=== PATIENT | male | born 1970 | race Caucasian/White ===

== ENCOUNTER → 2017-03-17 | Day surgery (SDC) | payer OTHER ==
--- NOTE | 2017-03-16 14:35 | PCM.PREANE ---
Preanesthetic Assessment - Anesthesia/Transfusion/Family Hx Anesthesia History: Prior Anesthesia Without Reaction Family History of Anesthesia Reaction: No Transfusion History: Prior Transfusion Without Reaction Intubation History: Unknown - Review of Systems Pulmonary: No Symptoms (quit smoking 1999) Cardiovascular: No Symptoms (History of PVC's and SVT) Neurological: No Symptoms (History of menigitis as a child./History of lower extremity edema noted.) Other: Reports: Depression - Physical Assessment NPO Status Date: 03/16/17 Height: 1.73 m ASA Class: 2 Mental Status: Alert & Oriented x3 - Lab Values: Laboratory Last Values MRSA (PCR) Negative 03/11/17 09:41 All lab values reviewed and noted and within acceptable ranges to proceed with scheduled procedure. - Imaging/EKG Impressions: EKG: SB rate= 47, minimal left ventricular hypertrophy Holter Monitor: - Echo: - Stress Test: - - Anesthesia Plan Pre-Op Medication Ordered: None - Acknowledgements Anesthesia Type Planned: General Anesthesia (and left interscalene block under US guidance for post operative pain control requested by Dr. Burleson.) Pt an Appropriate Candidate for the Planned Anesthesia: Yes Alternatives and Risks of Anesthesia Discussed w Pt/Guardian: Yes Pt/Guardian Understands and Agrees with Anesthesia Plan: Yes PreAnesthesia Questionnaire - CURRENT (IN HOUSE) MEDS Current Meds: Current Medications Albuterol (Proventil Neb Soln) 2.5 mg NEB ONETIME PRN PRN Reason: improve respiratory toilet Lactated Ringer's (Ringers, Lactated) 1,000 mls @ 125 mls/hr IV ASDIRECTED EDDI Stop: 03/17/17 23:00 Lidocaine/Sodium Bicarbonate (Buffered Lidocaine 1% In Ns 8.4%) 0.25 ml IDERM ONETIME PRN PRN Reason: Prior to IV Start Stop: 03/17/17 18:00 Sodium Chloride (Saline Flush) 10 ml FLUSH ASDIRECTED PRN PRN Reason: Keep Vein Open Stop: 03/17/17 18:00
--- NOTE | 2017-03-16 14:47 | PCM.PREANE ---
Preanesthetic Assessment - Anesthesia/Transfusion/Family Hx Anesthesia History: Prior Anesthesia Without Reaction Family History of Anesthesia Reaction: No Transfusion History: No Prior Transfusion(s) Intubation History: Unknown - Review of Systems General: No Symptoms Pulmonary: No Symptoms (chew tobacco 2100 03/16/17) Cardiovascular: No Symptoms Gastrointestinal: No Symptoms Neurological: No Symptoms (history of lower back surgury) Other: Reports: None - Physical Assessment NPO Status Date: 03/16/17 NPO Status Time: 19:00 Pulse: 63 O2 Sat by Pulse Oximetry: 94 Respiratory Rate: 20 Blood Pressure: 131/87 Temperature: 36.4 C Height: 1.8 m Weight: 149 kg ASA Class: 2 Mental Status: Alert & Oriented x3 Airway Class: Mallampati = 2 Dentition: Reports: Normal Dentition, Caries Thyro-Mental Finger Breadths: 3 Mouth Opening Finger Breadths: 3 ROM/Head Extension: Full Lungs: Clear to Auscultation, Normal Respiratory Effort Cardiovascular: Regular Rate, Regular Rhythm, No Murmurs - Lab Values: Laboratory Last Values MRSA (PCR) Negative 03/11/17 09:41 All lab values reviewed and noted and within acceptable ranges to proceed with scheduled procedure. - Imaging/EKG Impressions: EKG: SR rate=64 CXR: negative - Allergies Allergies/Adverse Reactions: Allergies Allergy/AdvReac Type Severity Reaction Status Date / Time No Known Allergies Allergy Verified 03/16/17 15:30 - Anesthesia Plan Pre-Op Medication Ordered: None - Acknowledgements Anesthesia Type Planned: General Anesthesia (and right interscalene block under us guidance for post operative pain control requested by Dr. Burleson.) Pt an Appropriate Candidate for the Planned Anesthesia: Yes Alternatives and Risks of Anesthesia Discussed w Pt/Guardian: Yes Pt/Guardian Understands and Agrees with Anesthesia Plan: Yes PreAnesthesia Questionnaire - HOME MEDS Home Medications: Home Meds Cyclobenzaprine [Flexeril] 10 mg PO Q8H PRN #40 tab 03/17/17 [Rx] Hydrocodone/Acetaminophen [[place] 5-325 Tablet] 1 - 2 each PO Q6H PRN #40 tablet 03/17/17 [Rx] - CURRENT (IN HOUSE) MEDS Current Meds: Current Medications Albuterol (Proventil Neb Soln) 2.5 mg NEB ONETIME PRN PRN Reason: improve respiratory toilet Lactated Ringer's (Ringers, Lactated) 1,000 mls @ 125 mls/hr IV ASDIRECTED EDDI Stop: 03/17/17 23:00 Lidocaine/Sodium Bicarbonate (Buffered Lidocaine 1% In Ns 8.4%) 0.25 ml IDERM ONETIME PRN PRN Reason: Prior to IV Start Stop: 03/17/17 18:00 Sodium Chloride (Saline Flush) 10 ml FLUSH ASDIRECTED PRN PRN Reason: Keep Vein Open Stop: 03/17/17 18:00
[~2017-03-17] MED LIST: Albuterol 0.083% 2.5 MG/3 ML Neb Soln NEB PRN; Albuterol 6.7 GM Inhaler INH ONE; Dexamethasone 4 MG/ML 5 ML MDV ONE; EPINEPHrine 1 MG/ML SDV ONE; HYDROmorphone 0.5 MG/0.5 ML Syringe IVPUSH PRN; HYDROmorphone 1 MG/ML Syringe ONE; Ketorolac 30 MG/ML SDV ONE; Labetalol 100 MG/20 ML MDV ONE; Lactated Ringers 1,000 ML IV SCH; Lactated Ringers 1,000 ML ONE; Lidocaine 1% 6 ML ONE; Lidocaine 1%/Sod Bicarbonate in NS 8.4% 1 ML Syringe IDERM PRN; Midazolam 1 MG/ML 2 ML SDV ONE; Ondansetron 4 MG/2 ML SDV IVPUSH PRN; Ondansetron 4 MG/2 ML SDV ONE; Phenylephrine 1 MG in Sodium Chloride 0.9% 10 ML IV SCH; Propofol 200 MG/20 ML SDV ONE; Rocuronium 50 MG/5 ML Vial ONE; Ropivacaine 0.5% 5 MG/ML 30 ML SDV ONE; Sodium Chloride 0.9% 10 ML Syringe FLUSH PRN; ceFAZolin 1 GM Vial ONE; diphenhydrAMINE 50 MG/ML SDV IVPUSH PRN; ePHEDrine 50 MG/ML SDV IVPUSH PRN; fentaNYL 100 MCG/2 ML SDV IVPUSH PRN; fentaNYL 100 MCG/2 ML SDV ONE; fentaNYL 250 MCG/5 ML SDV ONE
[2017-03-17] MEDS: EPINEPHrine 1 MG/ML 30 ML MDV ONE ×2 (10:30→10:58)
[2017-03-17] MEDS: Bupivacaine 0.25% 30 ML SDV ONE ×2 (10:58→11:40)
--- NOTE | 2017-03-17 12:15 | PCM.POSTAN ---
POST ANESTHESIA ASSESSMENT - MENTAL STATUS Mental Status: Alert - VITAL SIGNS Pulse Rate: 80 SaO2: 92 Resp Rate: 21 Blood Pressure: 172/95 Temperature: 36.4 C - RESPIRATORY Respiratory Status: Respiratory Rate WNL, Airway Patent, O2 Saturation Stable, Supplemental Oxygen - CARDIOVASCULAR CV Status: Pulse Rate WNL, Blood Pressure Stable - GASTROINTESTINAL GI Status: No Symptoms - POST OP HYDRATION Hydration Status: Adequate & Stable
--- NOTE | 2017-03-17 12:32 | PCM.OPNOTE ---
- General Post-Op/Procedure Note Date of Surgery/Procedure: 03/17/17 Operative Procedure(s): right shoulder video arthroscopy with large rotator cuff repair and extensive debridement Pre Op Diagnosis: right shoulder rotator cuff tear Post-Op Diagnosis: Same Anesthesia Technique: General ET Tube, Regional Block (interscalene) Primary Surgeon: Ever Burleson Anesthesia Provider: Shawnee Franco Candy Dipper Hand: Ciara Zhang EBL in mLs: 5 Complications: None Condition: Good
--- NOTE | 2017-03-17 15:07 | PCM48HPAN ---
Post Anesthesia Note - EVALUATION WITHIN 48HRS OF ANESTHETIC Vital Signs in Normal Range: Yes Patient Participated in Evaluation: Yes Respiratory Function Stable: Yes Airway Patent: Yes Cardiovascular Function Stable: Yes Hydration Status Stable: Yes Pain Control Satisfactory: Yes Nausea and Vomiting Control Satisfactory: Yes Mental Status Recovered: Yes
--- NOTE | 2017-03-17 15:41 | PCM.SN ---
- Free Text/Narrative Note: Anesthesia Note: (Right Interscalene block note) Date: 03/17/2017 Time Out: 906 Start: 911 Stop: 925 Surgical Procedure: Right Shoulder Video Arthroscopy with Rotator Cuff Repair, and Subacromial Decompression. Diagnosis Right Shoulder Rotator Cuff Tear Current Procedure: Right interscalene block under US guidance for postoperative pain control requested by Dr. Burleson. Patient chart reviewed, risk/benefits discussed with patient, consent obtained. Patient positioned supine, monitors/alarms on, oxygen placed via nasal cannula at 2 LPM. IV sedation administered: Versed 2mg IV @ 0906, Fentanyl 50mcg IV @ 0906 Right shoulder prepped with two chloropreps. Sterile drapes placed with aseptic technique noted. Under US guidance, right subclavian artery visualized along with the right brachial plexus. Plexus followed up to C6 cricoid level, and area localized with 2mls of 1% lidocaine. 22gauge 2 inch stimiplex needle advanced under US with 0.6mV with stimulation of biceps noted. Good stimulation noted with decreased voltage and absent at 0.2mVs. 1ml of Normal Saline injected with loss of stimulation noted to confirm needle not placed intraneurally. Incremental dosing of 5mls with negative aspiration noted prior to each injection of 0.5% ropivacaine with 1:200,000 epinephrine. Total volume=25mls. Please refer to nurses noted for vital signs. Shawnee Franco CRNA
--- NOTE | 2017-03-23 12:53 | PCM.OPNOTE ---
- General Post-Op/Procedure Note Date of Surgery/Procedure: 03/17/17 Operative Procedure(s): right shoulder video arthroscopy with large rotator cuff repair and extensive debridement Pre Op Diagnosis: right shoulder rotator cuff tear Post-Op Diagnosis: Same Anesthesia Technique: General ET Tube, Regional Block Primary Surgeon: Ever Burleson Anesthesia Provider: Shawnee Franco Assistant Art Director: Ciara Zhang EBRadha in mLs: 5 Complications: None Condition: Good
--- NOTE | 2017-03-23 13:25 | OR ---
DATE OF OPERATION: 03/17/2017 SURGEON: Ever Burleson MD OPERATION PERFORMED: Right shoulder video arthroscopy with large rotator cuff repair and extensive debridement. PREOPERATIVE DIAGNOSIS: Right shoulder rotator cuff tear. POSTOPERATIVE DIAGNOSIS: Right shoulder rotator cuff tear. ANESTHESIA: General endotracheal intubation with regional interscalene block. SENIOR GROUP MANAGER: Ciara Zhang PA-C. ANESTHESIA PROVIDER: Shawnee Franco CRNA. ESTIMATED BLOOD LOSS: Less than 5 mL. COMPLICATIONS: None. CONDITION: Stable. DESCRIPTION OF PROCEDURE: The patient was identified in the preop holding area. Proper site was marked and identified by the surgeon. The patient was taken back to the operating theater where after adequate anesthesia, the patient was placed in the lazy left lateral decubitus position. A wedge was placed posteriorly. All bony prominences were well padded. The right upper extremity was then sterilely prepped and draped in the usual sterile fashion. OR time-out was performed. The patient received 2 g IV Ancef. At this time, 15 pounds of traction was applied to the right upper extremity. Standard posterior incision was made. Scope trocar was introduced to the glenohumeral joint. At this time, the glenohumeral joint showed no signs of chondromalacia. There was noted to be a significant tear of the supraspinatus to the infraspinatus margin. There was noted that the patient had a previous proximal biceps tendon rupture. Subscapularis tendon was intact. There were no loose foreign bodies. At this time, attention was turned to the subacromial space. The trocar was placed and an anterior portal was then created as well. At this time, there was noted to be significant synovitis as well as scar tissue throughout the subacromial space and an extensive debridement was then done for visualization of ecchymotic and erythematous tissue. At this time, a spinal needle was used for creation of a lateral portal. The tear was identified. The previous tear on the greater tuberosity was debrided back to a good bony bleeding bed. At this time, 2 single loaded Arthrex 4.75 SwiveLock anchors were then placed, 1 anteriorly and 1 posteriorly. Two limbs of FiberTape and 2 limbs of FiberWire were then passed through the rotator cuff tear. The 2 FiberWire limbs of each anchor were then tied for medial row repair. Next, 2 self-tapping Arthrex 4.75 mm SwiveLock anchors were then utilized laterally. Attention was applied and there was good watertight repair noted. At this time, we did not do a subacromial decompression as it showed a type 1 border when looking at it directly. The patient also had the previous synovitis noted to be completely cleared out. At this time, excess saline was drained from the shoulder joint, 3-0 nylon simple suture was used for closure of the skin. The patient was placed in a sterile soft dressing and a pillow sling, and sent to the PACU in stable condition. MAGALY /[id number]
== END | disposition home or self-care (01) ==
LOC: JD.SDS 08:05
PROVIDERS: ATTEND Orthopaedic Surgery
DX: M75.121 Complete rotator cuff tear or rupture of right shoulder, not specified as traumatic (principal); R03.0 Elevated blood-pressure reading, without diagnosis of hypertension
CPT/HCPCS: 29823; 29827; 64415; 87641; 94640; A9270; J0171; J0690; J1100; J1170; J1885; J2250; J2405; J2795; J3010; J3490; J7120; 01630; J2704

== ENCOUNTER 2017-05-29 10:30 | Emergency (ER) | payer OTHER ==
[2017-05-29] MEDS ORDERED: valACYclovir 500 MG Tab PO ONE (10:50)
--- NOTE | 2017-05-29 10:51 | EDM.PDOC ---
ED HPI GENERAL MEDICAL PROBLEM - General Chief Complaint: Neurological Problem Stated Complaint: RIGHT SIDE OF FACE DROOPY Time Seen by Provider: 05/29/17 10:50 Source of Information: Reports: Patient, Family (spouse) History Limitations: Reports: No Limitations - History of Present Illness INITIAL COMMENTS - FREE TEXT/NARRATIVE: 46-year-old male presents to the ED in a complement of his and a friend from [facility]. Patient attended the clinic 2 days ago with right ear temporomandibular joint pain and some pain in his right parietal scalp. He was thought to have eustachian tube dysfunction and possibly serous otitis media and was placed on amoxicillin and fluticasone nasal spray. Last night he started to deep note decreased sensation in the right side of his face. He still has neuralgia type pain in the top of his scalp in the Rt parietal region and radiates down along his anterior and posterior ear. He's discovered a occipital lymphadenopathy on the right side as well as an anterior lymphadenopathy in front of his right ear. Pain is often very sharp and lancinating characteristic of neurogenic pain. Small morning he appreciated right facial droop and his appreciated that his right eye was not closing completely. He has no severe headache other than the lancinating shooting pain in scalp painful to touch on the right side. He noticed that when he tried to chew tobacco just ran out the side of his mouth this morning. He has no trouble swallowing. He has no change in his eyesight. He has no weakness or change in balance on walking. Onset: Gradual (Neuralgia type pain right scalp and jm-face started 2-1/2 days ago. Right facial decreased sensation and weakness developed overnight) Onset Date: 05/29/17 (Awoke with definite right hemifacial paresis this morning and weakness inability to close his right eye) Duration: Day(s): Location: Reports: Head (Tenderness right parietal occipital scalp.), Face Quality: Reports: Ache, Sharp (Lancinating along the scalp and), Stabbing Severity: Severe (When the pain comes it's 10 out of 10.) Improves with: Reports: None Worsens with: Reports: None Context: Denies: Activity, Exercise, Lifting, Sick Contact, Trauma, Other Associated Symptoms: Reports: Weakness (Right jm-face). Denies: Confusion, Chest Pain, Cough, cough w sputum, Diaphoresis, Fever/Chills, Headaches, Loss of Appetite, Malaise, Nausea/Vomiting, Rash, Seizure, Shortness of Breath, Syncope Treatments CERTIFIED ORTHOTIST/PEDORTHIST: Reports: NSAIDS (Has been taking Motrin intermittently.) Right Ear Pain Score (Numeric/FACES): 5 - Related Data Allergies Allergy/AdvReac Type Severity Reaction Status Date / Time No Known Allergies Allergy Verified 05/29/17 10:56 Home Meds: Home Meds Amoxicillin 500 mg PO TID 05/29/17 [History] Fluticasone Propionate [Flonase Allergy Relief] 2 spray JESUS DAILY 05/29/17 [ History] Past Medical History HEENT History: Reports: Impaired Vision, Sinusitis, Other (See Below) Other HEENT History: wears glasses Cardiovascular History: Reports: None Respiratory History: Reports: Other (See Below) Other Respiratory History: cough, pharyngitis Gastrointestinal History: Reports: None Genitourinary History: Reports: None 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 Musculoskeletal History: Reports: Other (See Below) Other Musculoskeletal History: right shoulder pain Neurological History: Reports: None Psychiatric History: Reports: None Endocrine/Metabolic History: Reports: None Hematologic History: Reports: None Immunologic History: Reports: None Oncologic (Cancer) History: Reports: None Dermatologic History: Reports: None - Past Surgical History Head Surgeries/Procedures: Reports: None Cardiovascular Surgical History: Reports: None Respiratory Surgical History: Reports: None GI Surgical History: Reports: None Female Surgical History: Reports: None Male Surgical History: Reports: None Endocrine Surgical History: Reports: None Neurological Surgical History: Reports: None Musculoskeletal Surgical History: Reports: Other (See Below) Other Musculoskeletal Surgeries/Procedures:: low back surgery Oncologic Surgical History: Reports: None Dermatological Surgical History: Reports: None Social & Family History - Tobacco Use Smoking Status *Q: Current Every Day Smoker Years of Tobacco use: 30 Packs/Tins Daily: 0.5 - Caffeine Use Caffeine Use: Reports: Coffee - Recreational Drug Use Recreational Drug Use: No Drug Use in Last 12 Months: No - Living Situation & Occupation Living situation: Reports: Occupation: Employed ED ROS GENERAL - Review of Systems Review Of Systems: See Below Constitutional: Reports: Decreased Appetite. Denies: Fever, Chills, Malaise, Weakness, Fatigue, Weight Loss HEENT: Reports: Ear Pain (Right ear pain particularly anterior to his right ear over the distribution of the temporomandibular joint. Also pain posterior to his right ear radiates along the angle of the mandible down to his neck. Also pain in his right jm-scalp like his hair hurts particularly in the parietal scalp zone.) Respiratory: Reports: No Symptoms Cardiovascular: Reports: No Symptoms Endocrine: Reports: No Symptoms GI/Abdominal: Reports: No Symptoms : Reports: No Symptoms Musculoskeletal: Reports: No Symptoms Skin: Denies: Rash Neurological: Reports: Other (Burning lancinating pain in the right jm-scalp and behind and anterior to his right ear.) Psychiatric: Reports: No Symptoms Hematologic/Lymphatic: Reports: No Symptoms Immunologic: Reports: No Symptoms ED EXAM, NEURO - Physical Exam Exam: See Below Exam Limited By: No Limitations General Appearance: Alert, WD/WN, Anxious, Moderate Distress Eye Exam: Bilateral Eye: Normal Inspection Ears: Other (Right ear canal and drum appear to be normal.) Throat/Mouth: Normal Inspection, Normal Lips, Normal Teeth, Normal Oropharynx Head Exam: Atraumatic, Normocephalic, Facial Tenderness (Facial tenderness over the temporomandibular joint and I feel a mild lymphadenopathy anterior to his right ear. There is also occipital lymphadenopathy or adenitis on the right side as well.), Other (Right facial droop.). No: Facial Swelling Neck: Normal Inspection, Supple, Non-Tender, Full Range of Motion. No: Lymphadenopathy (L), Lymphadenopathy (R) Respiratory/Chest: No Respiratory Distress, Lungs Clear, Normal Breath Sounds, No Accessory Muscle Use Cardiovascular: Normal Peripheral Pulses, Regular Rate, Rhythm, No Edema, No Gallop, No Murmur, No Rub GI/Abdominal: Normal Bowel Sounds, Soft, Non-Tender, No Organomegaly, No Abnormal Bruit Neurological: Alert, Normal Mood/Affect, Normal Dorsiflexion, Normal Gait, Normal Reflexes, Oriented x 3, Abnormal Sensation (Decreased sensation to the right side of his face.), Abnormal Motor (Patient has several nerve palsy involving the right side of his face with severe asymmetry of his smile and in a complete ability to close his right eye. I can easily open the eye again states resistance. No other cranial nerve involvement is evident. This is compatible with Peterson's palsy.), Other (He has normal rapid alternating movements. He has normal finger to nose normal Romberg sign.). No: CN II-XII Intact, Abnormal Finger to Nose, Difficulty Walking Extremities: Normal Inspection, Normal Range of Motion, Non-Tender, No Pedal Edema, Other Psychiatric: Normal Mood, Anxious (Mildly anxious.) Skin Exam: Warm, Dry, Intact, Normal Color, No Rash Course - Vital Signs Last Recorded V/S: Last Vital Signs Temp 36.9 C 05/29/17 10:52 Pulse 57 L 05/29/17 10:52 Resp 16 05/29/17 10:52 BP 141/87 H 05/29/17 10:52 Pulse Ox 100 05/29/17 10:52 - Orders/Labs/Meds Labs: Laboratory Tests 05/29/17 Range/Units 10:37 POC Glucose 97 (70-105) mg/dL Meds: Medications Discontinued Medications Generic Name Dose Route Start Last Admin Trade Name Miguel Ángelq PRN Reason Stop Dose Admin Valacyclovir HCl 1,000 mg 05/29/17 10:50 05/29/17 11:24 Valtrex PO 05/29/17 10:51 1,000 mg ONETIME ONE Administration - Radiology Interpretation Free Text/Narrative:: 46-year-old male presents to the ED with neuralgia type symptoms involving the right hemicranium particularly the parieto-occipital aspects of his scalp I worry scalp and hair hurts to touch. He has neurogenic pain like strong lancinating pain shooting down anterior and posterior to his right ear. Pain localized to right temporomandibular joint and I believe small lymph node anterior to the ear. There is also a right-sided occipital lymphadenopathy with adenitis as it is quite tender to touch. There is no right hemifacial rash to suggest zoster. However he has a definite right-sided facial weakness with asymmetry of his smile and weakness of the orbicularis oculi muscles. This is compatible with Peterson's palsy. He will be treated with Delsym severe 1 g 3 times a day for the next 7 days. I did give him a prescription for Percocet tabs as he is finding it quite painful he may need one or 2 of these before sleep at bedtime for the next while. He was prescribed Lacri-Lube ointment to be applied to the right lower eyelid and then the eye to be double patched closed overnight. Artificial tears to be used to the right eye 2 drops every 4 hours while awake. 34 weeks for his symptoms to improve and certainly may worsen and we bit over the next week. He is to return to medical care if he develops any rash in the right jm-face or scalp I would suggest herpes zoster infection. Infection is usually due to herpes 6 or herpes 9 virus. He is to follow-up with his usual care provider Angella Salmeron and [facility] in 10 days' time he was advised to continue the amoxicillin says he has adenitis evident on examination although it's likely viral. He can stop the fluticasone nasal spray at this time Departure - Departure Time of Disposition: 11:02 Disposition: Home, Self-Care 01 Condition: Fair Clinical Impression: Facial paralysis/[place] palsy - Discharge Information Instructions: Peterson Palsy, Adult Referrals: PCP,None [Ordering Only Provider] - Forms: ED Department Discharge Additional Instructions: Evaluation the emergency room today in regards to development of right hemifacial paresis or weakness overnight. You have had neurogenic pain in the top of your scalp along the right side of your face anterior to the ear for the last day or 2. Peterson's palsy is felt to be caused by one of the herpes virus usually her B6 or 9 virus. This results in weakness of the muscles around your high on the right side and of course the mouth making it look like you may have had a stroke. However the remainder of your neuro exam is completely normal. It' s never predictable as to how long the facial weakness is going to last blood on average it's at least 3 weeks and sometimes up to 6 weeks before the nerve comes back to life. We treat this with antiviral medication bowel sick of your 1 g 3 times daily for the next week to try and reduce the inflammation from the herpes virus. May use pain medication Percocet tabs 5/3/25 milligrams one or 2 every 4-6 hours needed for lancinating pain primarily at bedtime so that you can sleep. Important thing is that the right eye be taped closed overnight to prevent it from an open and drying out the cornea until nerve function returns to the muscle surrounding the right eye. Suggest Lacri-Lube ointment along the lower inner eyelid at bedtime and then double patching the eye closed overnight with tape. During the daytime you need to put artificial tears in the eye 2 drops every 4-6 hours to keep it moist. Just follow-up with your personal care provider Mary Lou Salmeron in the [facility] in 10 days' time. It is likely useful to use Motrin 600 mg every 6 hours or Aleve 2 tablets every 8 hours to relieve some of the inflammation of the nerve and particularly her scalp and ear and facial pain. For now continue the amoxicillin that you've been started on since he do have significant inflammation of the occipital lymph nodes on the right side. And sometimes be due to to a hair follicle infection on that side of your head. It also may all be due to viral infection in this area. The fluticasone nasal spray however you can discontinue.
== END 2017-05-29 11:43 | disposition home or self-care (01) ==
LOC: JD.ED 10:30
DX: G51.0 Bell's palsy (principal); F17.210 Nicotine dependence, cigarettes, uncomplicated; Z79.899 Other long term (current) drug therapy
CPT/HCPCS: 82962; 99284; A9270